=== PATIENT | male | born 1990 | race Caucasian/White ===

== ENCOUNTER 2018-06-06 13:44 | Emergency (ER) | payer OTHER ==
[~2018-06-06] VITALS: Ht 175.3 cm; Wt 81.7 kg
[~2018-06-06 13:44] MED LIST: LEVAQUIN750 MG PO; NORCO 5-325 TA1 EACH PO
[2018-06-06] MEDS ORDERED: NORCO 5-325 TA1 EACH PO (14:26)
== END 2018-06-06 14:46 | disposition home or self-care (01) ==
LOC: ED 13:44
DX: S82.55XA Nondisplaced fracture of medial malleolus of left tibia, initial encounter for closed fracture (principal); X50.9XXA Other and unspecified overexertion or strenuous movements or postures, initial encounter; F17.200 Nicotine dependence, unspecified, uncomplicated
CPT/HCPCS: 73610; 99283-25

== ENCOUNTER 2018-06-08 15:35 | Emergency (ER) | payer OTHER ==
[~2018-06-08] VITALS: Ht 175.3 cm; Wt 81.7 kg
--- OUTSIDE RECORDS SUMMARY | 2018-06-08 15:40 | XMS ---
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 Erlin has no Care Guidelines for this patient. [facility] MO[facility] NOTE: Visits indicate total known visits. ED/C VISIT TRACKING (12 MO.) 06/08/2018 15:36 [facility] TYPE: Emergency COMPLAINT: - L LEG INJURY 06/06/2018 13:44 [facility] TYPE: Emergency COMPLAINT: - LEFT ANKLE INJURY INPATIENT VISIT TRACKING (12 MO.) No inpatient visits to display in this time frame [email or web address]
[2018-06-08] MEDS ORDERED: KETOROLAC TROME10 MG PO (15:52)
[2018-06-08] MEDS ORDERED: IBU800 MG PO (15:55)
== END 2018-06-08 16:43 | disposition home or self-care (01) ==
LOC: ED 15:35
DX: S82.892A Other fracture of left lower leg, initial encounter for closed fracture (principal); F17.200 Nicotine dependence, unspecified, uncomplicated; Z79.899 Other long term (current) drug therapy; X50.9XXA Other and unspecified overexertion or strenuous movements or postures, initial encounter; Y92.828 Other wilderness area as the place of occurrence of the external cause
CPT/HCPCS: 96372; 99283-25; J1885

== ENCOUNTER 2018-08-22 16:46 | Emergency (ER) | payer OTHER ==
[~2018-08-22] VITALS: Ht 175.3 cm; Wt 81.7 kg
[~2018-08-22 16:46] MED LIST changes: +IBU800 MG PO; +KETOROLAC TROME10 MG PO
--- OUTSIDE RECORDS SUMMARY | 2018-08-22 16:50 | XMS ---
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 Erlin has no Care Guidelines for this patient. Care History Medical/Surgical 06/13/2018 [facility] - [facility] CALLED PATIENT AND COULD NOT LEAVE A MESSAGE DUE TO THE MAILBOX BEING FULL- PATIENT NOW HAS MEDICAID INSURANCE - PATIENT NEEDS TO ESTABLISH CARE WITH A PROVIDER - PLEASE REFER PATIENT TO THE WALK IN CLINIC TO MAKE AN APT TO ESTABLISH CARE WITH A PROVIDER. - NO PCP LETTER SENT TO PATIENT. EChao VISIT COUNT (12 MO.) 3 [facility]. TOTAL 3 NOTE: Visits indicate total known visits. ED/UCC VISIT TRACKING (12 MO.) 08/22/2018 16:48 [facility] TYPE: Emergency COMPLAINT: - R HAND/L TOE PAIN/INJURY 06/08/2018 15:36 [facility] TYPE: Emergency COMPLAINT: - L LEG INJURY DIAGNOSES: - Other rn long term care (current) drug therapy - Other [facility] area as the place of occurrence of the external cause - Pain in left ankle and joints of left foot - Nicotine dependence, unspecified, uncomplicated - Other and unspecified overexertion or strenuous movements or postures, initial encounter - Other fracture of left lower leg, initial encounter for closed fracture 06/06/2018 13:44 [facility] TYPE: Emergency COMPLAINT: - LEFT ANKLE INJURY DIAGNOSES: - Pain in left ankle and joints of left foot - Nicotine dependence, unspecified, uncomplicated - Nondisplaced fracture of medial malleolus of left tibia, initial encounter for closed fracture - Other and unspecified overexertion or strenuous movements or postures, initial encounter INPATIENT VISIT TRACKING (12 MO.) No inpatient visits to display in this time frame [id number]
== END 2018-08-22 18:25 | disposition home or self-care (01) ==
LOC: ED 16:46
DX: S67.21XA Crushing injury of right hand, initial encounter (principal); S97.82XA Crushing injury of left foot, initial encounter; W23.0XXA Caught, crushed, jammed, or pinched between moving objects, initial encounter; Y99.0 Civilian activity done for income or pay; F17.200 Nicotine dependence, unspecified, uncomplicated
CPT/HCPCS: 73130; 73630; 99283-25